=== PATIENT | female | born 1995 | race American Indian/Alaskan Native ===

== ENCOUNTER 2017-05-07 16:11 | Emergency (ER) | payer SELFPAY ==
[2017-05-07 16:21] VITALS: BP 115/76
[2017-05-07 17:01] LABS: Anion Gap 21 mmol/L; BUN/Creatinine Ratio 12.85; Blood Urea Nitrogen 9 mg/dL (7-17); Calcium 10.1 mg/dL (8.4-10.2); Carbon Dioxide 20 mmol/L (22-30); Chloride 102.9 mmol/L (98-107); Glucose 111 mg/dL (65-100); Sodium 140 mmol/L (137-145)
[2017-05-07 17:21] LABS: Basophils % (Auto) 0.3 % (0.0-1.8); Hematocrit 38.2 % (30.3-42.9); Hemoglobin 12.5 gm/dl (10.1-14.3); Mean Corpuscular HGB Conc 33 % (30-34); Mean Corpuscular Hemoglobin 28 pg (28-32); Mean Corpuscular Volume 84 fl (79-97); Platelet Count 269 K/mm3 (140-440); Red Blood Count 4.53 M/mm3 (3.65-5.03); Red Cell Distribution Width 14.1 % (13.2-15.2); White Blood Count 9.8 K/mm3 (4.5-11.0)
--- NOTE | 2017-05-10 00:44 | ED Elopement Review ---
ED Pt Elopement review - Results review Lab results: Laboratory Tests 05/07/17 05/07/17 16:25 16:25 WBC 9.8 RBC 4.53 Hgb 12.5 Hct 38.2 MCV 84 MCH 28 MCHC 33 RDW 14.1 Plt Count 269 Lymph % (Auto) 7.7 L [place] % (Auto) 2.2 Eos % (Auto) 0.0 Baso % (Auto) 0.3 Lymph # 0.8 L [place] # 0.2 Eos # 0.0 Baso # 0.0 Seg Neutrophils % 89.8 H Seg Neutrophils # 8.8 H Sodium 140 Potassium 4.0 Chloride 102.9 Carbon Dioxide 20 L Anion Gap 21 BUN 9 Creatinine 0.7 Estimated GFR > 60 BUN/Creatinine Ratio 12.85 Glucose 111 H Calcium 10.1 - Call Back decision Pt Call Back Decision: No action required
== END 2017-05-07 21:40 | disposition left against medical advice (07) ==
LOC: ED 16:11
DX: R10.9 Unspecified abdominal pain (principal); R11.2 Nausea with vomiting, unspecified; Z53.21 Procedure and treatment not carried out due to patient leaving prior to being seen by health care provider
CPT/HCPCS: 36415; 80048; 85025